=== PATIENT | female | born 1975 | race Caucasian/White ===

== ENCOUNTER 2017-04-25 00:31 | Emergency (ER) | payer MEDICAID ==
[~2017-04-25 00:31] MED LIST: ALPRAZOLAM1 MG PO; ANT12.5 PO; BUS5 PO; CIPRO500 MG PO; HYDROXYZINE50 M1 PO; MECLIZINE HYDRO25 M1 PO; NAP250 PO; NORCO1 TA1 PO; NORCO1 TA2 PO; ZOF4 PO
[2017-04-25 03:36] LABS: PLATELET COUNT 297 x10^3mcL (130-400); RED CELL DISTRIBUTION WIDTH 13.1 % (11.5-14.5)
[2017-04-25 03:37] LABS: CALCIUM 8.4 mg/dL (8.5-10.1); CARBON DIOXIDE 32.3 mmol/L (21-32); CHLORIDE SERUM 103 mmol/L (98-107); CREATININE SERUM 0.8 mg/dL (0.6-1.0); GFR1 > 60 mL/min; GLUCOSE SERUM 108 mg/dL (74-106); POTASSIUM SERUM 3.4 mmol/L (3.5-5.1); SODIUM SERUM 137 mmol/L (136-145)
[2017-04-25 03:42] LABS: ALBUMIN 3.4 g/dL (3.4-5.0); ALKALINE PHOSPHATASE 105 U/L (46-116); ALT/SGPT 22 U/L (14-59); AST/SGOT 18 U/L (15-37); BILIRUBIN TOTAL 0.1 mg/dL (0.20-1.00); TOTAL PROTEIN, SERUM 7.7 g/dL (6.4-8.2)
[2017-04-25 03:52] LABS: BASOPHIL % 5.6 % (0-2)
[2017-04-25 07:32] VITALS: BP 106/75
== END 2017-04-25 07:32 | disposition home or self-care (01) ==
LOC: ED 00:31
PROVIDERS: Emergency Medicine
DX: R07.9 Chest pain, unspecified (principal); R42 Dizziness and giddiness; Z88.5 Allergy status to narcotic agent
CPT/HCPCS: 36415; 83880; 85378; Q0092

== ENCOUNTER 2017-07-31 12:30 | Inpatient (IN) | payer MEDICAID ==
[~2017-07-31] VITALS: Ht 152.4 cm; Wt 76.4 kg
[2017-07-31 12:33] VITALS: Ht 152.4 cm; Wt 76.4 kg
[2017-07-31 14:13] LABS: PLATELET COUNT 275 x10^3mcL (130-400); RED CELL DISTRIBUTION WIDTH 13.6 % (11.5-14.5)
[2017-07-31 14:20] LABS: CALCIUM 8.6 mg/dL (8.5-10.1); CHLORIDE SERUM 104 mmol/L (98-107); CREATININE SERUM 0.7 mg/dL (0.6-1.0); GFR1 > 60 mL/min; GLUCOSE SERUM 106 mg/dL (74-106); POTASSIUM SERUM 3.8 mmol/L (3.5-5.1); SODIUM SERUM 140 mmol/L (136-145)
[2017-07-31 14:24] LABS: ALBUMIN 3.6 g/dL (3.4-5.0); ALKALINE PHOSPHATASE 75 U/L (46-116); ALT/SGPT 18 U/L (14-59); AST/SGOT 17 U/L (15-37); BILIRUBIN TOTAL 0.3 mg/dL (0.20-1.00); TOTAL PROTEIN, SERUM 7.8 g/dL (6.4-8.2)
[2017-07-31 16:08] VITALS: BP 141/84
[2017-07-31 16:16] LABS: T3 TOTAL 1.29 ng/mL
[2017-07-31 16:31] LABS: CHOLESTEROL/HDL RATIO 4.4; MAGNESIUM 2.1 mg/dL (1.8-2.4); PHOSPHOROUS 2.6 mg/dL (2.5-4.9)
[2017-07-31 16:43] LABS: FREE T4 1.04 ng/dL (0.76-1.46); FREE THYROXINE INDEX 2.4 ug/dL (1.4-4.5); T4(THYROXINE) 8.6 ug/dL (4.7-13.3)
[2017-07-31 17:31] LABS: microscopic required? YES; urine erythrocyte TRACE (NEGATIVE)
[2017-07-31 17:42] LABS: AMPHETAMINE QUAL UR NONE DETECTED (NEG <=1000)
[2017-07-31 18:14] VITALS: BP 116/76
[2017-07-31 20:00] VITALS: BP 121/81
[2017-08-01 05:03] VITALS: BP 90/56
[2017-08-01 06:51] LABS: BASOPHIL % 0.1 % (0-2); PLATELET COUNT 240 x10^3mcL (130-400); RED CELL DISTRIBUTION WIDTH 13.6 % (11.5-14.5)
[2017-08-01 07:14] LABS: CALCIUM 8.1 mg/dL (8.5-10.1); CARBON DIOXIDE 25.5 mmol/L (21-32); CHLORIDE SERUM 109 mmol/L (98-107); CREATININE SERUM 0.7 mg/dL (0.6-1.0); GFR1 > 60 mL/min; GLUCOSE SERUM 102 mg/dL (74-106); MAGNESIUM 2.1 mg/dL (1.8-2.4); PHOSPHOROUS 3.3 mg/dL (2.5-4.9); SODIUM SERUM 141 mmol/L (136-145)
[2017-08-01 10:01] VITALS: BP 93/56
[2017-08-01 14:57] VITALS: BP 107/68
[2017-08-01] MEDS ORDERED: MECLIZINE HYDRO25 M1 PO (15:03)
[2017-08-01] MEDS ORDERED: LIPI10 PO (15:04)
[2017-08-01] MEDS ORDERED: ZOLOFT50 MG PO (15:05)
[2017-08-01] MEDS ORDERED: BACTRIM DS1 TAB PO (15:10)
[2017-08-01] MEDS ORDERED: ALPRAZOLAM1 MG PO (15:10)
[2017-08-01] MEDS ORDERED: LAC PO (15:10)
[2017-08-01 15:35] VITALS: BP 107/68
== END 2017-08-01 16:48 | disposition home or self-care (01) | DRG 756 ==
LOC: ED 12:30 → DU 14:47
PROVIDERS: Emergency Medicine; Family Medicine
DX: F41.1 Generalized anxiety disorder (principal); N39.0 Urinary tract infection, site not specified; R07.89 Other chest pain; F32.9 Major depressive disorder, single episode, unspecified; E78.00 Pure hypercholesterolemia, unspecified; E66.9 Obesity, unspecified; D25.9 Leiomyoma of uterus, unspecified; Z88.5 Allergy status to narcotic agent; Z90.49 Acquired absence of other specified parts of digestive tract; Z83.3 Family history of diabetes mellitus; Z82.49 Family history of ischemic heart disease and other diseases of the circulatory system; Z84.1 Family history of disorders of kidney and ureter; Z68.32 Body mass index [BMI] 32.0-32.9, adult
CPT/HCPCS: 83880; 84439; J3010; J8597; Q0092

== ENCOUNTER 2018-05-10 18:13 | Emergency (ER) | payer MEDICAID ==
[~2018-05-10] VITALS: Ht 152.4 cm; Wt 75.3 kg
[~2018-05-10 18:13] MED LIST changes: +BACTRIM DS1 TAB PO; +LAC PO; +LIPI10 PO; +ZOLOFT50 MG PO
[2018-05-10 18:23] VITALS: Ht 152.4 cm; Wt 75.3 kg
[2018-05-10 19:51] VITALS: BP 119/82
== END 2018-05-10 19:51 | disposition home or self-care (01) ==
LOC: ED 18:13
DX: M53.82 Other specified dorsopathies, cervical region (principal); F41.9 Anxiety disorder, unspecified; M25.511 Pain in right shoulder; E78.00 Pure hypercholesterolemia, unspecified; Z88.5 Allergy status to narcotic agent
CPT/HCPCS: J1885

== ENCOUNTER 2018-08-24 01:43 | Emergency (ER) | payer MEDICAID | END 2018-08-24 04:54 | disposition home or self-care (01) | LOC: ED 01:43 ==

== ENCOUNTER 2018-12-19 14:58 | Emergency (ER) | payer SELFPAY ==
[~2018-12-19] VITALS: Ht 160 cm; Wt 69.4 kg
[2018-12-19 15:43] LABS: BASOPHIL % 0.3 % (0-2); PLATELET COUNT 247 x10^3mcL (130-400); RED CELL DISTRIBUTION WIDTH 14.4 % (11.5-14.5)
[2018-12-19 15:51] LABS: CALCIUM 8.9 mg/dL (8.5-10.1); CARBON DIOXIDE 28.1 mmol/L (21-32); CHLORIDE SERUM 104 mmol/L (98-107); CREATININE SERUM 0.8 mg/dL (0.6-1.0); GFR1 > 60 mL/min; GLUCOSE SERUM 150 mg/dL (74-106); POTASSIUM SERUM 3.7 mmol/L (3.5-5.1); SODIUM SERUM 141 mmol/L (136-145)
[2018-12-19 15:56] LABS: ALBUMIN 3.5 g/dL (3.4-5.0); ALKALINE PHOSPHATASE 60 U/L (46-116); ALT/SGPT 19 U/L (14-59); AST/SGOT 14 U/L (15-37); BILIRUBIN TOTAL 0.4 mg/dL (0.20-1.00); TOTAL PROTEIN, SERUM 7.2 g/dL (6.4-8.2)
[2018-12-19 15:57] LABS: UA SPECIFIC GRAVITY >=1.030 (1.005-1.035); microscopic required? YES; urine erythrocyte 3+ (NEGATIVE)
[2018-12-19 16:53] VITALS: BP 117/62
== END 2018-12-19 16:59 | disposition home or self-care (01) ==
LOC: ED 14:58
PROVIDERS: Emergency Medicine
DX: R42 Dizziness and giddiness (principal); R51 Headache; R11.2 Nausea with vomiting, unspecified; R68.83 Chills (without fever); F41.9 Anxiety disorder, unspecified; E78.00 Pure hypercholesterolemia, unspecified; Z88.5 Allergy status to narcotic agent
CPT/HCPCS: J2765; J7030; J8597; Q0092